=== PATIENT | male | born 1940 | race Two or more races ===

== ENCOUNTER 2017-12-25 08:13 | Emergency (ER) | payer MEDICARE, MEDICAID ==
[~2017-12-25] VITALS: Ht 172.7 cm; Wt 88.5 kg
[2017-12-25] MEDS ORDERED: NEBI5TAB8 PO (08:29)
[2017-12-25] MEDS ORDERED: ROSU5TAB PO (08:29)
[2017-12-25] MEDS ORDERED: METF10004 PO (08:29)
[2017-12-25] MEDS ORDERED: AMLO1TAB39 PO (08:29)
[2017-12-25] MEDS ORDERED: INSU200I4 SQ (08:29)
[2017-12-25] MEDS ORDERED: LINA5TAB PO (08:29)
[2017-12-25] MEDS ORDERED: IBUPROFEN 800 MG TABLET PO ONE (09:00)
[2017-12-25] MEDS ORDERED: IBUPROFEN 800 MG TABLET ONE (09:00)
--- NOTE | 2017-12-25 09:04 | NUR ---
Patient discharged to home in stable conditon. Written and verbal after care instructions given. Patient verbalizes understanding of instructions.
== END 2017-12-25 09:06 | disposition home or self-care (01) ==
LOC: ER 08:14
DX: M43.6 Torticollis (principal); I10 Essential (primary) hypertension; E11.9 Type 2 diabetes mellitus without complications; I25.10 Atherosclerotic heart disease of native coronary artery without angina pectoris; Z79.4 Long term (current) use of insulin; Z79.84 Long term (current) use of oral hypoglycemic drugs; Z79.899 Other long term (current) drug therapy
CPT/HCPCS: A4663

== ENCOUNTER 2018-03-01 19:27 | Inpatient (IN) | payer MEDICARE, MEDICAID ==
[~2018-03-01] VITALS: Ht 172.7 cm; Wt 86.6 kg
[~2018-03-01 19:27] MED LIST: AMLO1TAB39 PO; INSU200I4 SQ; LINA5TAB PO; METF10004 PO; NEBI5TAB8 PO; ROSU5TAB PO
--- NOTE | 2018-03-01 19:50 | NUR ---
Dr. Ladd at bedside for MSE.
[2018-03-01 20:12] LABS: BASOPHILS # (AUTO) 0.1 K/uL (0.0-8.0); BASOPHILS % (AUTO) 1.1 % (0.0-2.0); EOSINOPHILS # (AUTO) 0.2 K/uL (0.0-0.7); EOSINOPHILS % (AUTO) 4.2 % (0.0-7.0); HEMATOCRIT 32.2 % (36.7-47.1); HEMOGLOBIN 10.8 g/dL (12.5-16.3); LYMPHOCYTES # (AUTO) 1.8 K/uL (20.0-40.0); LYMPHOCYTES % (AUTO) 35.5 % (20.5-51.5); MEAN CORPUSCULAR HGB CONC 34 g/dL (32.5-36.3); MEAN CORPUSCULAR VOLUME 86.4 fL (73.0-96.2); MONOCYTES # (AUTO) 0.5 K/uL (2.0-10.0); NEUTROPHILS # (AUTO) 2.4 K/uL (1.8-8.9); NEUTROPHILS % (AUTO) 49.2 % (38.5-71.5); PLATELET COUNT (AUTO) 228 K/uL (152-348); RED BLOOD CELL COUNT(AUTO) 3.72 MIL/uL (4.06-5.63); WHITE BLOOD COUNT (AUTO) 4.9 K/uL (3.6-10.2)
[2018-03-01 20:15] LABS: *BILIRUBIN,URIN NEGATIVE (NEGATIVE); *BLOOD, URINE NEGATIVE (NEGATIVE); *CLARITY,URINE CLEAR (CLEAR); *COLOR,URINE YELLOW (YELLOW); *KETONES,URINE NEGATIVE (NEGATIVE); *PROTEIN,URINE NEGATIVE (NEGATIVE); *UROBILINOGEN,URINE 0.2 E.U./dl (NORMAL); LEUKOCYTE ESTERASE ,URINE NEGATIVE (NEGATIVE); NITRITE, URINE NEGATIVE (NEGATIVE); UGLUCOSE NEGATIVE (NEGATIVE)
[2018-03-01 20:22] LABS: BACTERIA,URINE NONE SEEN /HPF (NONE SEEN); RBC,URINE 0-3 /HPF (0-3); SQUAMOUS EPITHELIAL CELL,UR NONE SEEN /HPF (NONE SEEN); WBC,URINE 0-3 /HPF (0-3)
[2018-03-01 20:33] LABS: ALANINE AMINOTRANSFERASE 67 U/L (16-63); ALKALINE PHOSPHATASE 53 U/L (50-136); ASPARTATE AMINOTRANSFERASE 42 U/L (15-37); BILIRUBIN,DIRECT 0.1 mg/dL (0.0-0.2); BILIRUBIN,TOTAL 0.3 mg/dL (0.2-1.0); CARBON DIOXIDE 23 mmol/L (21-32); CHLORIDE 104 mmol/L (98-107); CREATININE 1.2 mg/dL (0.6-1.3); GLUCOSE 172 mg/dL (74-106); POTASSIUM 4.6 mmol/L (3.5-5.1); TOTAL PROTEIN, SERUM 7.5 g/dL (6.4-8.2); UREA NITROGEN, BLOOD 16 mg/dL (7-18)
[2018-03-01 20:44] LABS: LIPASE 2126 U/L (73-393)
--- NOTE | 2018-03-01 21:50 | NUR ---
Dr. Ladd on panel call with Dr. Fitzgerald.
[2018-03-01] MEDS ORDERED: ONDANSETRON 4 MG/2 ML VIAL IV ONE (22:00)
[2018-03-01] MEDS ORDERED: IV NORMAL SALINE 1000 ML BAG IV ONE (22:00)
[2018-03-01] MEDS ORDERED: ONDANSETRON 4 MG/2 ML VIAL ONE (22:11)
--- NOTE | 2018-03-01 22:13 | NUR ---
Pt out of ER for CT.
--- NOTE | 2018-03-01 22:29 | NUR ---
Pt back to ER from CT.
--- NOTE | 2018-03-01 23:23 | NUR ---
Report given to Brody MURO Tele
[2018-03-01] MEDS ORDERED: ENALAPRILAT DIHYDRATE INJ 2.5 MG in IV NORMAL SALINE 50 ML IV PRN (23:45)
[2018-03-01] MEDS ORDERED: INSULIN REGULAR, HUMAN 300 UNIT/3 ML VIAL SQ PRN (23:45)
[2018-03-01] MEDS ORDERED: DEXTROSE 50% 50 ML DISP.SYRIN IV PRN (23:45)
[2018-03-01] MEDS ORDERED: ONDANSETRON 4 MG/2 ML VIAL IV PRN (23:45)
[2018-03-01] MEDS ORDERED: MORPHINE SULFATE 2 MG/1 ML DISP.SYRIN IV PRN (23:45)
[2018-03-01] MEDS ORDERED: ACETAMINOPHEN 650 MG SUPP.RECT RC PRN (23:45)
[2018-03-02] VITALS: BP 136/60
--- NOTE | 2018-03-02 00:45 | NUR ---
Received patient from ER in no acute distress. Patient A/Ox4, Nigerian-speaking. Grandson at bedside. VSS. Sinus bradycardia on monitor. Room air. No complaints of pain or nausea at this time. Will continue plan of care.
[2018-03-02] MEDS: IV D5 1/2 NS 1000 ML 1,000 ML IV PRN ×3 (00:58→22:29)
[2018-03-02] MEDS: BLOOD SUGAR DIAGNOSTIC 1 EACH STRIP VI SCH ×5 (00:58→20:34)
--- NOTE | 2018-03-02 01:00 | NUR ---
Grandson at bedside, states that patient "might have an Advance Directive" and that patient's daughter Fiordaliza Ladd, , may be able to provide in AM. Will follow up.
--- NOTE | 2018-03-02 01:00 | NUR ---
Teaching provided regarding patient's diagnosis to both patient and grandson. Kiswahili literature education and Yi given. Both verbalize understanding
[2018-03-02 04:00] VITALS: BP 135/62
[2018-03-02 06:19] LABS: EOSINOPHILS # (AUTO) 0.2 K/uL (0.0-0.7); EOSINOPHILS % (AUTO) 4.4 % (0.0-7.0); HEMATOCRIT 30.9 % (36.7-47.1); HEMOGLOBIN 10.5 g/dL (12.5-16.3); LYMPHOCYTES # (AUTO) 1.5 K/uL (20.0-40.0); LYMPHOCYTES % (AUTO) 35.8 % (20.5-51.5); MEAN CORPUSCULAR HEMOGLOBIN 29.3 uug (23.8-33.4); MEAN CORPUSCULAR HGB CONC 34 g/dL (32.5-36.3); MEAN CORPUSCULAR VOLUME 86.4 fL (73.0-96.2); MONOCYTES # (AUTO) 0.4 K/uL (2.0-10.0); MONOCYTES % (AUTO) 9.1 % (0.0-11.0); NEUTROPHILS # (AUTO) 2.1 K/uL (1.8-8.9); NEUTROPHILS % (AUTO) 49.7 % (38.5-71.5); PLATELET COUNT (AUTO) 183 K/uL (152-348); RED BLOOD CELL COUNT(AUTO) 3.58 MIL/uL (4.06-5.63); WHITE BLOOD COUNT (AUTO) 4.3 K/uL (3.6-10.2)
[2018-03-02 06:32] LABS: IRON, SERUM 49 ug/dL (50-175)
[2018-03-02 06:34] LABS: ALANINE AMINOTRANSFERASE 56 U/L (16-63); ALKALINE PHOSPHATASE 42 U/L (50-136); ASPARTATE AMINOTRANSFERASE 36 U/L (15-37); BILIRUBIN,TOTAL 0.3 mg/dL (0.2-1.0); CARBON DIOXIDE 25 mmol/L (21-32); CHLORIDE 108 mmol/L (98-107); CHOLESTEROL 105 mg/dL (<200); CREATININE 1.2 mg/dL (0.6-1.3); GLUCOSE 124 mg/dL (74-106); HDL CHOLESTEROL 43 mg/dL (40-60); MAGNESIUM 1.7 mg/dL (1.8-2.4); PHOSPHOROUS 3.2 mg/dL (2.5-4.9); POTASSIUM 4.5 mmol/L (3.5-5.1); TOTAL PROTEIN, SERUM 6.5 g/dL (6.4-8.2); TRIGLYCERIDES 63 MG/DL (30-150); UREA NITROGEN, BLOOD 11 mg/dL (7-18)
[2018-03-02 06:44] LABS: LIPASE 450 U/L (73-393)
[2018-03-02 06:45] LABS: THYROID STIMULATING HORMONE 4.762 mIU/mL (0.358-3.740)
--- NOTE | 2018-03-02 08:00 | NUR ---
awake alert cooperate well no pain or n/v keep npo continue ivf ,resting well with call sapp in reach and remiond to call WHEN NEEDED
[2018-03-02] MEDS: PANTOPRAZOLE SODIUM 40 MG VIAL IV SCH (08:21)
[2018-03-02] MEDS ORDERED: MORPHINE SULFATE 4 MG/1 ML DISP.SYRIN IV PRN (08:30)
--- NOTE | 2018-03-02 10:00 | NUR ---
ENC TO OOB UP AMBULATE IN THE [address] AND UP IN CHAIR DOING WELL FAMILY DAUGHTER AT BEDSIDE NO N/V OR PAIN
[2018-03-02 11:45] VITALS: BP 122/56
--- NOTE | 2018-03-02 13:30 | NUR ---
BHARGAVI LOYOLAS SEEN PATIENT AND PT C/O OF HUNGRY AND H/A NEW ORDER IN CHART START CLEAR LIQ DIET TODAY LAURE MOD AMT NO N/V AND TYLENOL PO GIVEN
[2018-03-02] MEDS ORDERED: ACETAMINOPHEN 325 MG TABLET PO PRN (14:15)
[2018-03-02] MEDS: MAGNESIUM SULFATE/D5W 100 ML IV SCH ×2 (14:48→15:42)
[2018-03-02 15:37] VITALS: BP 119/57
--- NOTE | 2018-03-02 16:30 | NUR ---
ADV DIET TO FULL LIQ THIS PM ORDER NO N/V OR PAIN FAMILY AT BEDSIDE
[2018-03-02] MEDS: AMLODIPINE 5 MG TABLET PO SCH (16:38)
[2018-03-02] MEDS: LOSARTAN POTASSIUM 50 MG TABLET PO SCH (16:39)
[2018-03-02] MEDS: METFORMIN HCL 500 MG TABLET PO SCH (16:45)
[2018-03-02] MEDS ORDERED: Medication Not On Formulary EA (Metformin Hcl 1,000 MG) PO SCH (17:00)
--- NOTE | 2018-03-02 17:30 | NUR ---
STABLE HEMODYNAMIC STATUS PAIN UNDER CONTROL CONTINUE IVF SAFETY MEASURE PROVIDED AND CALL LIGHT IN REACH
[2018-03-02] MEDS ORDERED: DEXTROSE 50% 50 ML DISP.SYRIN IV PRN (17:45)
[2018-03-02] MEDS ORDERED: Medication Not On Formulary EA (Nebivolol Hcl (Bystolic) 5 MG) PO SCH (18:00)
[2018-03-02 20:00] VITALS: BP 137/57
--- NOTE | 2018-03-02 20:00 | NUR ---
Received patient awake in bed, alert and oriented. Patient is on Sinus bradycardia with HR of 50, no SOB, no chest pain noted. Kept clean and dry. Placed call light within reach and reminded to call when needed.
[2018-03-02] MEDS: INSULIN REGULAR, HUMAN 300 UNIT/3 ML VIAL SQ PRN (20:41)
[2018-03-02] MEDS ORDERED: ATORVASTATIN 10 MG TABLET PO SCH (21:00)
[2018-03-02] MEDS ORDERED: Medication Not On Formulary EA (Rosuvastatin Calcium (Crestor) 5 MG) PO SCH (21:00)
[2018-03-03] VITALS: BP 125/55
[2018-03-03 04:00] VITALS: BP 138/58
[2018-03-03] MEDS: BLOOD SUGAR DIAGNOSTIC 1 EACH STRIP VI SCH ×2 (06:01→11:33)
[2018-03-03 06:18] LABS: CARBON DIOXIDE 26 mmol/L (21-32); CHLORIDE 107 mmol/L (98-107); CREATININE 1.1 mg/dL (0.6-1.3); GLUCOSE 127 mg/dL (74-106); LIPASE 366 U/L (73-393); PHOSPHOROUS 3.1 mg/dL (2.5-4.9); POTASSIUM 4.5 mmol/L (3.5-5.1); UREA NITROGEN, BLOOD 8 mg/dL (7-18)
[2018-03-03 06:21] LABS: BASOPHILS # (AUTO) 0.1 K/uL (0.0-8.0); BASOPHILS % (AUTO) 1.3 % (0.0-2.0); EOSINOPHILS # (AUTO) 0.3 K/uL (0.0-0.7); EOSINOPHILS % (AUTO) 6.3 % (0.0-7.0); HEMATOCRIT 32.1 % (36.7-47.1); HEMOGLOBIN 10.8 g/dL (12.5-16.3); LYMPHOCYTES # (AUTO) 1.5 K/uL (20.0-40.0); LYMPHOCYTES % (AUTO) 29.1 % (20.5-51.5); MEAN CORPUSCULAR HEMOGLOBIN 29.1 uug (23.8-33.4); MEAN CORPUSCULAR HGB CONC 34 g/dL (32.5-36.3); MEAN CORPUSCULAR VOLUME 86.5 fL (73.0-96.2); MONOCYTES # (AUTO) 0.4 K/uL (2.0-10.0); MONOCYTES % (AUTO) 7.8 % (0.0-11.0); NEUTROPHILS # (AUTO) 2.8 K/uL (1.8-8.9); NEUTROPHILS % (AUTO) 55.5 % (38.5-71.5); PLATELET COUNT (AUTO) 211 K/uL (152-348); RED BLOOD CELL COUNT(AUTO) 3.71 MIL/uL (4.06-5.63); WHITE BLOOD COUNT (AUTO) 5.1 K/uL (3.6-10.2)
--- NOTE | 2018-03-03 07:00 | NUR ---
Patient remained fully rested. Patient is on Sinus Bradycardia with HR of 44. No complaint of SOB, no chest pain noted.
[2018-03-03] MEDS: AMLODIPINE 5 MG TABLET PO SCH (08:50)
[2018-03-03] MEDS: METFORMIN HCL 500 MG TABLET PO SCH (08:51)
[2018-03-03] MEDS: LOSARTAN POTASSIUM 50 MG TABLET PO SCH (08:51)
[2018-03-03] MEDS: PANTOPRAZOLE SODIUM 40 MG VIAL IV SCH (08:51)
[2018-03-03] MEDS ORDERED: LINAGLIPTIN 5 MG TABLET PO SCH (09:00)
[2018-03-03] MEDS ORDERED: Medication Not On Formulary EA (Amlodipine Bes/Olmesartan Med (Azor 5-40 Mg Tablet) 1 EA PO SCH (09:00)
--- NOTE | 2018-03-03 11:19 | NUR ---
Pt stable, pleasant, and cooperative. Pt tolerated breakfast mechanical soft diet. Self-ambulated down the swift, no pain, no SOB.
[2018-03-03] MEDS: INSULIN REGULAR, HUMAN 300 UNIT/3 ML VIAL SQ PRN (11:35)
[2018-03-03 11:42] VITALS: BP 107/59
--- NOTE | 2018-03-03 13:50 | NUR ---
PT D/C to home under the care of daughter. No pain, no SOB, no N/V. Pt will follow up with PCP. Self-ambulated out of the unit.
[2018-03-04] MEDS ORDERED: PANTOPRAZOLE SODIUM 40 MG TABLET.DR PO SCH (07:00)
== END 2018-03-03 13:45 | disposition home or self-care (01) | DRG 440 ==
LOC: ER 19:30 → TELE 03-02 00:20
PROVIDERS: ADMIT Internal Medicine; ATTEND Internal Medicine
DX: K85.90 Acute pancreatitis without necrosis or infection, unspecified (principal); I10 Essential (primary) hypertension; I25.10 Atherosclerotic heart disease of native coronary artery without angina pectoris; Z85.46 Personal history of malignant neoplasm of prostate; Z95.1 Presence of aortocoronary bypass graft; E11.65 Type 2 diabetes mellitus with hyperglycemia; Z79.84 Long term (current) use of oral hypoglycemic drugs
CPT/HCPCS: 36415; 70030-TC; 71045; 83550; 83690; 83735; 84100; 84443; 85025; 87086; 93005; A4663; C9113; J1815; J2405; J3475; J3490; J7030

== ENCOUNTER 2018-05-25 15:19 | Emergency (ER) | payer MEDICARE, MEDICAID ==
[~2018-05-25] VITALS: Ht 172.7 cm; Wt 81.6 kg
[2018-05-25 16:08] LABS: BASOPHILS % (AUTO) 0.7 % (0.0-2.0); EOSINOPHILS # (AUTO) 0.2 K/uL (0.0-0.7); EOSINOPHILS % (AUTO) 3.4 % (0.0-7.0); HEMATOCRIT 32.1 % (36.7-47.1); HEMOGLOBIN 10.7 g/dL (12.5-16.3); LYMPHOCYTES # (AUTO) 1.6 K/uL (20.0-40.0); LYMPHOCYTES % (AUTO) 32.2 % (20.5-51.5); MEAN CORPUSCULAR HEMOGLOBIN 29.1 uug (23.8-33.4); MEAN CORPUSCULAR HGB CONC 33 g/dL (32.5-36.3); MEAN CORPUSCULAR VOLUME 87.2 fL (73.0-96.2); MONOCYTES # (AUTO) 0.5 K/uL (2.0-10.0); MONOCYTES % (AUTO) 9.4 % (0.0-11.0); NEUTROPHILS # (AUTO) 2.7 K/uL (1.8-8.9); NEUTROPHILS % (AUTO) 54.3 % (38.5-71.5); PLATELET COUNT (AUTO) 206 K/uL (152-348); RED BLOOD CELL COUNT(AUTO) 3.68 MIL/uL (4.06-5.63); WHITE BLOOD COUNT (AUTO) 5.1 K/uL (3.6-10.2)
[2018-05-25 16:09] LABS: *BILIRUBIN,URIN NEGATIVE (NEGATIVE); *BLOOD, URINE NEGATIVE (NEGATIVE); *CLARITY,URINE CLEAR (CLEAR); *COLOR,URINE YELLOW (YELLOW); *KETONES,URINE NEGATIVE (NEGATIVE); *PROTEIN,URINE NEGATIVE (NEGATIVE); *UROBILINOGEN,URINE 0.2 E.U./dl (NORMAL); LEUKOCYTE ESTERASE ,URINE NEGATIVE (NEGATIVE); NITRITE, URINE NEGATIVE (NEGATIVE); PH,URINE 5.5 (5.0-8.0); UGLUCOSE NEGATIVE (NEGATIVE)
[2018-05-25 16:20] LABS: CARBON DIOXIDE 23 mmol/L (21-32); CHLORIDE 109 mmol/L (98-107); CREATININE 1.3 mg/dL (0.6-1.3); GLUCOSE 81 mg/dL (74-106); POTASSIUM 4.8 mmol/L (3.5-5.1); UREA NITROGEN, BLOOD 18 mg/dL (7-18)
[2018-05-25 16:24] LABS: SQUAMOUS EPITHELIAL CELL,UR FEW /HPF (NONE SEEN); WBC,URINE NONE SEEN /HPF (0-3)
[2018-05-25 16:28] LABS: ALANINE AMINOTRANSFERASE 62 U/L (16-63); ALKALINE PHOSPHATASE 47 U/L (50-136); ASPARTATE AMINOTRANSFERASE 56 U/L (15-37); BILIRUBIN,DIRECT 0.1 mg/dL (0.0-0.2); BILIRUBIN,TOTAL 0.3 mg/dL (0.2-1.0); LIPASE 1344 U/L (73-393); TOTAL PROTEIN, SERUM 7.5 g/dL (6.4-8.2)
--- NOTE | 2018-05-25 17:13 | NUR ---
Patient discharged to home in stable conditon. Written and verbal after care instructions given. Patient verbalizes understanding of instructions.pt walks in steady gait. pt with daughter who provided translation from armenian
[2018-05-25 17:14] VITALS: BP 131/69
== END 2018-05-25 17:16 | disposition home or self-care (01) ==
LOC: ER 15:19
DX: K85.90 Acute pancreatitis without necrosis or infection, unspecified (principal); E78.5 Hyperlipidemia, unspecified; E11.9 Type 2 diabetes mellitus without complications; I10 Essential (primary) hypertension; I25.10 Atherosclerotic heart disease of native coronary artery without angina pectoris; Z95.1 Presence of aortocoronary bypass graft
CPT/HCPCS: 36415; 70030-TC; 71045; 83690; 85025; 93005; A4663

== ENCOUNTER 2018-12-01 10:58 | Emergency (ER) | payer MEDICARE, MEDICAID ==
[~2018-12-01] VITALS: Ht 175.3 cm; Wt 81.6 kg
[~2018-12-01 10:58] MED LIST changes: +METF-442 PO; -METF10004 PO
--- NOTE | 2018-12-01 12:00 | NUR ---
DR MOCTEZUMA MADE PATIENT AWARE OF TEST RESULTS.
--- NOTE | 2018-12-01 12:04 | NUR ---
Patient discharged to home in stable conditon. Written and verbal after care instructions given. Patient verbalizes understanding of instructions.
[2018-12-01 12:09] VITALS: BP 143/73
== END 2018-12-01 12:11 | disposition home or self-care (01) ==
LOC: ER 10:58
DX: M54.5 Low back pain (principal); M54.6 Pain in thoracic spine; E78.5 Hyperlipidemia, unspecified; E11.9 Type 2 diabetes mellitus without complications; I10 Essential (primary) hypertension; I25.10 Atherosclerotic heart disease of native coronary artery without angina pectoris; Z95.1 Presence of aortocoronary bypass graft; Z79.4 Long term (current) use of insulin; Z79.899 Other long term (current) drug therapy; W19.XXXA Unspecified fall, initial encounter; Y93.89 Activity, other specified; Y92.89 Other specified places as the place of occurrence of the external cause; Y99.8 Other external cause status
CPT/HCPCS: 72072; 72100; A4663

== ENCOUNTER 2019-08-22 13:58 | Emergency (ER) | payer MEDICARE, MEDICAID ==
[~2019-08-22] VITALS: Ht 165.1 cm; Wt 83.9 kg
--- NOTE | 2019-08-22 14:25 | NUR ---
PATIENT STATES HE FELL LAST THURSDAY AND HIS HEAD HURTS EVER SINCE. HE IS A/A/OX3 IN NO DISTRESS. HE IS AMBULATORY WITH NO NEURO DEFICITS REPORTED.. SON AT BEDSIDE
[2019-08-22] MEDS ORDERED: IV NORMAL SALINE 1000 ML BAG IV ONE (14:30)
[2019-08-22] MEDS ORDERED: METOCLOPRAMIDE HCL 10 MG/2 ML VIAL IV ONE (14:30)
[2019-08-22] MEDS ORDERED: METOCLOPRAMIDE HCL 10 MG/2 ML VIAL ONE (14:36)
[2019-08-22 14:43] LABS: BASOPHILS # (AUTO) 0.1 K/uL (0.0-8.0); BASOPHILS % (AUTO) 1.1 % (0.0-2.0); EOSINOPHILS # (AUTO) 0.1 K/uL (0.0-0.7); EOSINOPHILS % (AUTO) 1.1 % (0.0-7.0); HEMATOCRIT 33.9 % (36.7-47.1); HEMOGLOBIN 10.9 g/dL (12.5-16.3); LYMPHOCYTES # (AUTO) 1.4 K/uL (20.0-40.0); LYMPHOCYTES % (AUTO) 26.4 % (20.5-51.5); MEAN CORPUSCULAR HEMOGLOBIN 26.6 uug (23.8-33.4); MEAN CORPUSCULAR HGB CONC 32 g/dL (32.5-36.3); MEAN CORPUSCULAR VOLUME 82.6 fL (73.0-96.2); MONOCYTES # (AUTO) 0.4 K/uL (2.0-10.0); MONOCYTES % (AUTO) 8.2 % (0.0-11.0); NEUTROPHILS # (AUTO) 3.4 K/uL (1.8-8.9); NEUTROPHILS % (AUTO) 63.2 % (38.5-71.5); PLATELET COUNT (AUTO) 227 K/uL (152-348); WHITE BLOOD COUNT (AUTO) 5.4 K/uL (3.6-10.2)
[2019-08-22 14:52] LABS: CREATININE 1.3 mg/dL (0.6-1.3); POTASSIUM 4.7 mmol/L (3.5-5.1)
[2019-08-22 15:09] LABS: BILIRUBIN,DIRECT 0.1 mg/dL (0.0-0.2); BILIRUBIN,TOTAL 0.4 mg/dL (0.2-1.0); TOTAL PROTEIN, SERUM 7.7 g/dL (6.4-8.2)
--- NOTE | 2019-08-22 15:22 | NUR ---
PATIENT IS AWAKE AND ALERT WITH NO NEW COMPLAINTS.
[2019-08-22] MEDS ORDERED: KETOROLAC TROMETHAMINE 15 MG INJ IVP ONE (15:45)
[2019-08-22] MEDS ORDERED: KETOROLAC TROMETHAMINE 15 MG INJ ONE (16:15)
--- NOTE | 2019-08-22 16:24 | NUR ---
[id number] AMBULATED TO BR WITH STEADY GAIT.
--- NOTE | 2019-08-22 17:28 | NUR ---
DC AND FOLLOW UP INSTRUCTIONS GIVEN AND EXPLAINED TO PATIENT AND SON WHO STATE THEY UNDERSTAND ALL INSTRUCTIONS.
--- NOTE | 2019-08-22 17:28 | NUR ---
IV removed. Catheter intact and site benign. Pressure and 4x4 gauze applied to site. No bleeding noted.
[2019-08-22 17:30] VITALS: BP 125/78
[2019-08-25] MEDS ORDERED: ASPI81TA31 PO (10:20)
[2019-09-08] MEDS ORDERED: ISOS60TA4 PO (10:08)
== END 2019-08-22 17:31 | disposition home or self-care (01) ==
LOC: ER 13:58
DX: R51 Headache (principal); M54.2 Cervicalgia; I25.10 Atherosclerotic heart disease of native coronary artery without angina pectoris; E78.5 Hyperlipidemia, unspecified; E11.9 Type 2 diabetes mellitus without complications; I10 Essential (primary) hypertension; Z95.1 Presence of aortocoronary bypass graft; Z79.4 Long term (current) use of insulin; Z79.84 Long term (current) use of oral hypoglycemic drugs; Z79.899 Other long term (current) drug therapy
CPT/HCPCS: 36415; 70450; 80048; 80076; 84484; 85025; 85730; 93005; 96374; 96375; 99284; J1885; J2765; 70030-TC; A4663; J7030

== ENCOUNTER 2019-08-24 09:22 | Inpatient (IN) | payer MEDICARE, MEDICAID ==
[~2019-08-24] VITALS: Ht 172.7 cm; Wt 86.2 kg
[2019-08-24] MEDS ORDERED: ASPI-966 PO (09:39)
[2019-08-24] MEDS ORDERED: TAMS-3 PO (09:39)
[2019-08-24] MEDS ORDERED: DUTA0.5C PO (09:39)
[2019-08-24] MEDS ORDERED: NITROGLYCERIN 0.4 MG/TAB BOTTLE SL ONE ×2 (09:44→09:45)
[2019-08-24] MEDS ORDERED: ASPIRIN 325 MG TABLET ONE (09:45)
[2019-08-24] MEDS ORDERED: ASPIRIN 325 MG TABLET PO ONE (09:45)
[2019-08-24 09:50] LABS: BASOPHILS # (AUTO) 0.1 K/uL (0.0-8.0); BASOPHILS % (AUTO) 1.1 % (0.0-2.0); EOSINOPHILS % (AUTO) 0.8 % (0.0-7.0); HEMATOCRIT 32.5 % (36.7-47.1); HEMOGLOBIN 11.2 g/dL (12.5-16.3); LYMPHOCYTES # (AUTO) 1.2 K/uL (20.0-40.0); LYMPHOCYTES % (AUTO) 22.7 % (20.5-51.5); MEAN CORPUSCULAR HEMOGLOBIN 28.5 uug (23.8-33.4); MEAN CORPUSCULAR HGB CONC 35 g/dL (32.5-36.3); MEAN CORPUSCULAR VOLUME 82.8 fL (73.0-96.2); MONOCYTES # (AUTO) 0.4 K/uL (2.0-10.0); MONOCYTES % (AUTO) 7.1 % (0.0-11.0); NEUTROPHILS # (AUTO) 3.5 K/uL (1.8-8.9); NEUTROPHILS % (AUTO) 68.3 % (38.5-71.5); PLATELET COUNT (AUTO) 219 K/uL (152-348); RED BLOOD CELL COUNT(AUTO) 3.92 MIL/uL (4.06-5.63); WHITE BLOOD COUNT (AUTO) 5.2 K/uL (3.6-10.2)
--- NOTE | 2019-08-24 09:51 | NUR ---
PT IS IN ROOM #1B. DR KUMARI EVALUATED THE PT.
[2019-08-24 09:54] LABS: CREATININE 1.2 mg/dL (0.6-1.3); POTASSIUM 4.6 mmol/L (3.5-5.1)
[2019-08-24 10:07] LABS: BILIRUBIN,DIRECT 0.1 mg/dL (0.0-0.2); BILIRUBIN,TOTAL 0.3 mg/dL (0.2-1.0); TOTAL PROTEIN, SERUM 7.4 g/dL (6.4-8.2)
[2019-08-24] MEDS ORDERED: ZOLPIDEM 5 MG TABLET PO PRN (11:00)
[2019-08-24] MEDS ORDERED: ONDANSETRON 4 MG/2 ML VIAL IV PRN (11:00)
[2019-08-24] MEDS ORDERED: MAGNESIUM HYDROXIDE 30 ML LIQUID UDC PO PRN (11:00)
[2019-08-24] MEDS ORDERED: HYDROCODONE/APAP 5-325MG TABLET PO PRN (11:00)
[2019-08-24] MEDS ORDERED: Z GUARD REMEDY PASTE 57 GM TUBE TOP PRN (11:00)
[2019-08-24] MEDS ORDERED: ACETAMINOPHEN 325 MG TABLET PO PRN (11:00)
--- NOTE | 2019-08-24 11:00 | NUR ---
REPORT GIVEN TO PULPER. PT WAS TRANSFERED TO ROOM #318.
--- NOTE | 2019-08-24 11:00 | NUR ---
Received patient from ER. Patient alert oriented x4. IV site at right AC 18 gauge. Patient ambulatory with steady gait. Patient denies pain and discomfort. Patient on 2L/min of oxygen via NC. No acute distress noted. Bed at lowest position. Call light within reach. Side rails up x 2. Will continue to monitor.
[2019-08-24] MEDS ORDERED: NITROGLYCERIN 0.4 MG/TAB BOTTLE SL PRN (11:15)
[2019-08-24] MEDS: METOPROLOL TARTRATE 25 MG TABLET PO SCH ×2 (12:07→20:37)
[2019-08-24 12:13] VITALS: BP 155/69
[2019-08-24] MEDS ORDERED: DEXTROSE 50% 50 ML DISP.SYRIN IV PRN (14:45)
[2019-08-24 16:28] VITALS: BP 161/60
[2019-08-24] MEDS: BLOOD SUGAR DIAGNOSTIC 1 EACH STRIP VI SCH ×2 (16:47→20:42)
[2019-08-24] MEDS: LOSARTAN POTASSIUM 25 MG TABLET PO SCH (17:25)
[2019-08-24] MEDS: METFORMIN HCL 500 MG TABLET PO SCH (17:25)
[2019-08-24] MEDS: AMLODIPINE 5 MG TABLET PO SCH (17:25)
[2019-08-24] MEDS: INSULIN REGULAR, HUMAN 300 UNIT/3 ML VIAL SQ PRN (17:26)
--- NOTE | 2019-08-24 18:36 | NUR ---
Patient rested throughout shift. Patient denies pain and discomfort. Patients BP elevated, LOADING MACHINE OPERATOR HELPER Sendy notified BP medications administered. Troponin levels within normal limits. Urine collected and sent to the lab. Safety measures provided. Will endorse to oncoming nurse.
[2019-08-24 18:38] LABS: *BILIRUBIN,URIN NEGATIVE (NEGATIVE); *BLOOD, URINE NEGATIVE (NEGATIVE); *CLARITY,URINE CLEAR (CLEAR); *COLOR,URINE YELLOW (YELLOW); *KETONES,URINE NEGATIVE (NEGATIVE); *UROBILINOGEN,URINE 0.2 E.U./dl (NORMAL); LEUKOCYTE ESTERASE ,URINE NEGATIVE (NEGATIVE); NITRITE, URINE NEGATIVE (NEGATIVE); UGLUCOSE NEGATIVE (NEGATIVE)
--- NOTE | 2019-08-24 19:30 | NUR ---
RECEIVED PT AWAKE, ALERT AND ORIENTEDX4. PT SHOWS NO SIGNS OF ACUTE DISTRESS. PT IV INTACT. SAFETY AND COMFORT PROVIDED. WILL CONTINUE TO MONITOR.
[2019-08-24 20:38] VITALS: BP 172/64
[2019-08-24] MEDS ORDERED: ATORVASTATIN 40 MG TABLET PO SCH (21:00)
[2019-08-24] MEDS ORDERED: ATORVASTATIN 20 MG TABLET PO SCH ×2 (21:00)
[2019-08-24] MEDS ORDERED: ATORVASTATIN 10 MG TABLET PO SCH (21:00)
--- NOTE | 2019-08-25 00:06 | NUR ---
NOTIFY DR. BOYLE REGARDING PT TROPONIN RESULT OF <0.017. DR KUHN JUST ORDERED NPO AND PT WILL HAVE CTA IN AM. PT IN NO ACUTE DISTRESS. SAFETY AND COMFORT PROVIDED. WILL CONTINUE TO MONITOR.
[2019-08-25 00:38] VITALS: BP 145/62
[2019-08-25 04:00] VITALS: BP 130/71
--- NOTE | 2019-08-25 06:17 | NUR ---
PT SLEPT INTERMITTENTLY. PT SHOWS NO SIGNS OF ACUTE DISTRESS.IV INTACT. PRESCRIBED MEDICATION GIVEN AND PT TOLERATED IT WELL. PT COOPERATIVE WITH CARE. SAFETY AND COMFORT PROVIDED. ALL NEEDS ARE MET. WILL ENDORSE TO INCOMING NURSE FOR CONTINUITY OF CARE.
[2019-08-25 06:31] LABS: BASOPHILS % (AUTO) 0.8 % (0.0-2.0); EOSINOPHILS # (AUTO) 0.2 K/uL (0.0-0.7); EOSINOPHILS % (AUTO) 3.9 % (0.0-7.0); HEMATOCRIT 33.4 % (36.7-47.1); HEMOGLOBIN 10.6 g/dL (12.5-16.3); LYMPHOCYTES # (AUTO) 1.7 K/uL (20.0-40.0); LYMPHOCYTES % (AUTO) 32.9 % (20.5-51.5); MEAN CORPUSCULAR HEMOGLOBIN 25.8 uug (23.8-33.4); MEAN CORPUSCULAR HGB CONC 32 g/dL (32.5-36.3); MEAN CORPUSCULAR VOLUME 81.3 fL (73.0-96.2); MONOCYTES # (AUTO) 0.4 K/uL (2.0-10.0); MONOCYTES % (AUTO) 8.6 % (0.0-11.0); NEUTROPHILS # (AUTO) 2.8 K/uL (1.8-8.9); NEUTROPHILS % (AUTO) 53.8 % (38.5-71.5); PLATELET COUNT (AUTO) 209 K/uL (152-348); RED BLOOD CELL COUNT(AUTO) 4.11 MIL/uL (4.06-5.63); WHITE BLOOD COUNT (AUTO) 5.2 K/uL (3.6-10.2)
[2019-08-25] MEDS: BLOOD SUGAR DIAGNOSTIC 1 EACH STRIP VI SCH ×3 (06:35→16:47)
[2019-08-25 06:50] LABS: CREATININE 1.1 mg/dL (0.6-1.3); MAGNESIUM 1.8 mg/dL (1.8-2.4); PHOSPHOROUS 3.3 mg/dL (2.5-4.9); POTASSIUM 4.7 mmol/L (3.5-5.1)
[2019-08-25] MEDS: METFORMIN HCL 500 MG TABLET PO SCH (08:44)
[2019-08-25] MEDS: AMLODIPINE 5 MG TABLET PO SCH (08:48)
[2019-08-25] MEDS: METOPROLOL TARTRATE 25 MG TABLET PO SCH (09:00)
[2019-08-25] MEDS ORDERED: ASPIRIN 81 MG TAB.CHEW PO SCH (09:00)
[2019-08-25] MEDS: LOSARTAN POTASSIUM 25 MG TABLET PO SCH (09:00)
[2019-08-25] MEDS ORDERED: TAMSULOSIN HCL 0.4 MG CAP.SR.24H PO SCH (09:00)
--- NOTE | 2019-08-25 10:15 | NUR ---
Pt received this morning. Pt assessed, denies pain. Primarily Belarusian speaking, able to make needs known. AAOx4. Daughter visiting at bedside. Plan for today including transfer via ambulance for CTA discussed. Morning medications tolerated, Pt refused 2/3 BP meds claiming he only takes 1 at home for BP 146/55, HR 49. Pt teaching provided. All comfort and safety needs attended to at this time. Right 18 AC hep lock intact. Call light within reach. Will continue to monitor.
[2019-08-25] MEDS ORDERED: ASPI81TA31 PO (10:20)
--- NOTE | 2019-08-25 10:51 | NUR ---
VS stable. Report given to teacher ballet. Pt picked up for transport by ambulance to [facility] for CTA. All safety needs addressed.
[2019-08-25 11:37] VITALS: BP 121/94
--- NOTE | 2019-08-25 12:47 | NUR ---
Pt returned safely, VSS. New order received regarding to start on 2gm Na diabetic diet. Will continue to monitor.
[2019-08-25 15:40] VITALS: BP 121/57
--- NOTE | 2019-08-25 16:24 | NUR ---
Pt and daughter at bedside spoke with Dr. Sanches over the phone discussing the results of the CTA procedure from this morning. All concerns addressed. Order for discharge received. Plan for discharge by private car with daughter arranged for after dinner. Belongings accounted for and list signed. Call light placed within reach. Will continue to monitor and follow up.
[2019-08-25] MEDS: INSULIN REGULAR, HUMAN 300 UNIT/3 ML VIAL SQ PRN (16:58)
--- NOTE | 2019-08-25 18:00 | NUR ---
Discharge paperwork reviewed with Pt and daughter at bedside. Documents signed, copies placed in chart, and originals provided to Pt. All discahrge concerns addressed. No skin integrity photos to be taken. No home medications to be returned. Belongings accounted for, IV removed intact, and tele monitor removed. VS stable. Pt safely transferred to wheelchair and escorted down to private car with daughter driving. ID band removed. Will remove Pt from system shortly.
[2019-09-08] MEDS ORDERED: ISOS60TA4 PO (10:08)
== END 2019-08-25 18:00 | disposition home or self-care (01) | DRG 303 ==
LOC: ER 09:22 → TELE3 10:30
PROVIDERS: ADMIT Nurse Practitioner Acute Care; ATTEND Nurse Practitioner Acute Care
PROC: B22 Imaging, Heart, Computerized Tomography (CT Scan) (ICD-10-PCS; principal; 2019-08-25)
DX: I25.119 Atherosclerotic heart disease of native coronary artery with unspecified angina pectoris (principal); J98.11 Atelectasis; I11.9 Hypertensive heart disease without heart failure; Z95.1 Presence of aortocoronary bypass graft; E78.5 Hyperlipidemia, unspecified; D63.8 Anemia in other chronic diseases classified elsewhere; E11.9 Type 2 diabetes mellitus without complications; I70.0 Atherosclerosis of aorta; Z79.4 Long term (current) use of insulin
CPT/HCPCS: 36415; 70030-TC; 70450; 71045; 83735; 84100; 85025; 85730; 93005; 93307; A4663; G0378; J1815; J7030

== ENCOUNTER 2019-09-06 21:41 | Inpatient (IN) | payer MEDICARE, MEDICAID ==
[~2019-09-06] VITALS: Ht 172.7 cm; Wt 87.7 kg
[~2019-09-06 21:41] MED LIST changes: +ASPI-966 PO; +ASPI81TA31 PO; +TAMS-3 PO
[2019-09-06] MEDS ORDERED: LABETALOL HCL 100 MG/20 ML VIAL IV ONE ×2 (22:30→23:45)
[2019-09-06 22:31] LABS: BASOPHILS # (AUTO) 0.1 K/uL (0.0-8.0); BASOPHILS % (AUTO) 1.3 % (0.0-2.0); EOSINOPHILS # (AUTO) 0.1 K/uL (0.0-0.7); EOSINOPHILS % (AUTO) 2.4 % (0.0-7.0); HEMATOCRIT 33.2 % (36.7-47.1); HEMOGLOBIN 10.6 g/dL (12.5-16.3); LYMPHOCYTES # (AUTO) 1.4 K/uL (20.0-40.0); LYMPHOCYTES % (AUTO) 27.7 % (20.5-51.5); MEAN CORPUSCULAR HGB CONC 32 g/dL (32.5-36.3); MEAN CORPUSCULAR VOLUME 81.2 fL (73.0-96.2); MONOCYTES # (AUTO) 0.5 K/uL (2.0-10.0); MONOCYTES % (AUTO) 8.9 % (0.0-11.0); NEUTROPHILS # (AUTO) 3.1 K/uL (1.8-8.9); NEUTROPHILS % (AUTO) 59.7 % (38.5-71.5); PLATELET COUNT (AUTO) 222 K/uL (152-348); RED BLOOD CELL COUNT(AUTO) 4.09 MIL/uL (4.06-5.63); WHITE BLOOD COUNT (AUTO) 5.1 K/uL (3.6-10.2)
[2019-09-06 22:34] LABS: CREATININE 1.3 mg/dL (0.6-1.3); POTASSIUM 4.7 mmol/L (3.5-5.1)
[2019-09-06] MEDS ORDERED: LABETALOL HCL 100 MG/20 ML VIAL ONE (22:38)
[2019-09-06 22:41] LABS: BILIRUBIN,DIRECT 0.1 mg/dL (0.0-0.2); BILIRUBIN,TOTAL 0.3 mg/dL (0.2-1.0); TOTAL PROTEIN, SERUM 7.1 g/dL (6.4-8.2)
[2019-09-06] MEDS ORDERED: ASPIRIN 325 MG TABLET ONE (23:24)
[2019-09-06 23:36] LABS: *BILIRUBIN,URIN NEGATIVE (NEGATIVE); *BLOOD, URINE NEGATIVE (NEGATIVE); *CLARITY,URINE CLEAR (CLEAR); *COLOR,URINE YELLOW (YELLOW); *KETONES,URINE NEGATIVE (NEGATIVE); *UROBILINOGEN,URINE 0.2 E.U./dl (NORMAL); LEUKOCYTE ESTERASE ,URINE NEGATIVE (NEGATIVE); NITRITE, URINE NEGATIVE (NEGATIVE); UGLUCOSE NEGATIVE (NEGATIVE)
[2019-09-06] MEDS ORDERED: ASPIRIN 325 MG TABLET PO ONE (23:45)
[2019-09-07] MEDS ORDERED: MAGNESIUM HYDROXIDE 30 ML LIQUID UDC PO PRN (01:00)
[2019-09-07] MEDS ORDERED: Z GUARD REMEDY PASTE 57 GM TUBE TOP PRN (01:00)
[2019-09-07] MEDS ORDERED: ASPIRIN/ACETAMINOPHEN/CAFFEINE TABLET PO PRN (01:00)
[2019-09-07] MEDS ORDERED: ACETAMINOPHEN 325 MG TABLET PO PRN (01:00)
[2019-09-07] MEDS ORDERED: HYDROCODONE/APAP 5-325MG TABLET PO PRN (01:00)
[2019-09-07] MEDS ORDERED: ONDANSETRON 4 MG/2 ML VIAL IV PRN (01:00)
[2019-09-07] MEDS ORDERED: INSULIN REGULAR, HUMAN 300 UNIT/3 ML VIAL SQ PRN ×2 (01:15→17:30)
[2019-09-07] MEDS ORDERED: INSULIN REGULAR, HUMAN 300 UNITS/3 ML VIAL SQ PRN ×2 (01:15→17:30)
[2019-09-07] MEDS ORDERED: hydrALAZINE HCL 20 MG/1 ML VIAL IV PRN (01:15)
[2019-09-07] MEDS ORDERED: DEXTROSE 50% 50 ML DISP.SYRIN IV PRN ×2 (01:15→17:30)
[2019-09-07 01:30] VITALS: BP 156/62
[2019-09-07] MEDS ORDERED: NITROGLYCERIN 0.4 MG/TAB BOTTLE SL ONE (01:30)
[2019-09-07] MEDS ORDERED: ENOXAPARIN SODIUM 40 MG/0.4 ML DISP.SYRIN SQ ONE (02:00)
[2019-09-07] MEDS ORDERED: NITROGLYCERIN 0.4 MG/TAB BOTTLE SL PRN (02:00)
[2019-09-07 04:00] VITALS: BP 152/64
[2019-09-07] MEDS: BLOOD SUGAR DIAGNOSTIC 1 EACH STRIP VI SCH ×5 (06:35→21:18)
[2019-09-07] MEDS: METFORMIN HCL 500 MG TABLET PO SCH ×2 (08:46→18:09)
[2019-09-07] MEDS: LOSARTAN POTASSIUM 50 MG TABLET PO SCH (08:46)
[2019-09-07] MEDS: ASPIRIN 81 MG TAB.CHEW PO SCH (08:46)
[2019-09-07] MEDS: METOPROLOL TARTRATE 25 MG TABLET PO SCH ×2 (08:47→17:00)
[2019-09-07] MEDS ORDERED: Medication Not On Formulary EA (Amlodipine Bes/Olmesartan Med (Azor 5-40 Mg Tablet) 1 EA PO SCH (09:00)
[2019-09-07] MEDS ORDERED: AMLODIPINE 5 MG TABLET PO SCH (09:00)
[2019-09-07] MEDS ORDERED: Medication Not On Formulary EA (Metformin Hcl 1,000 MG) PO SCH (09:00)
[2019-09-07 10:40] LABS: BASOPHILS # (AUTO) 0.1 K/uL (0.0-8.0); BASOPHILS % (AUTO) 1.2 % (0.0-2.0); EOSINOPHILS # (AUTO) 0.1 K/uL (0.0-0.7); EOSINOPHILS % (AUTO) 3.1 % (0.0-7.0); HEMATOCRIT 32.6 % (36.7-47.1); HEMOGLOBIN 10.4 g/dL (12.5-16.3); LYMPHOCYTES # (AUTO) 1.5 K/uL (20.0-40.0); LYMPHOCYTES % (AUTO) 30.9 % (20.5-51.5); MEAN CORPUSCULAR HEMOGLOBIN 26.4 uug (23.8-33.4); MEAN CORPUSCULAR HGB CONC 32 g/dL (32.5-36.3); MEAN CORPUSCULAR VOLUME 82.8 fL (73.0-96.2); MONOCYTES # (AUTO) 0.5 K/uL (2.0-10.0); MONOCYTES % (AUTO) 9.8 % (0.0-11.0); NEUTROPHILS # (AUTO) 2.7 K/uL (1.8-8.9); PLATELET COUNT (AUTO) 207 K/uL (152-348); RED BLOOD CELL COUNT(AUTO) 3.94 MIL/uL (4.06-5.63); WHITE BLOOD COUNT (AUTO) 4.8 K/uL (3.6-10.2)
[2019-09-07] MEDS ORDERED: hydrALAZINE HCL 50 MG TABLET PO PRN (10:45)
[2019-09-07 11:01] LABS: CREATININE 1.2 mg/dL (0.6-1.3); POTASSIUM 4.5 mmol/L (3.5-5.1)
[2019-09-07] MEDS: ISOSORBIDE MONONITRATE 60 MG TAB.SR.24H PO SCH (11:11)
[2019-09-07 11:27] VITALS: BP 153/68
[2019-09-07 15:09] VITALS: BP 106/51
[2019-09-07] MEDS ORDERED: Medication Not On Formulary EA (Nebivolol Hcl (Bystolic) 5 MG) PO SCH (18:00)
[2019-09-07 20:27] VITALS: BP 110/51
[2019-09-07] MEDS: AMLODIPINE 5 MG TABLET PO SCH (21:00)
[2019-09-07] MEDS ORDERED: ENOXAPARIN SODIUM 40 MG/0.4 ML DISP.SYRIN SQ SCH (21:00)
[2019-09-07] MEDS ORDERED: TAMSULOSIN HCL 0.4 MG CAP.SR.24H PO SCH (21:00)
[2019-09-07] MEDS ORDERED: Medication Not On Formulary EA (Rosuvastatin Calcium (Crestor) 5 MG) PO SCH (21:00)
[2019-09-07] MEDS ORDERED: ATORVASTATIN 10 MG TABLET PO SCH (21:00)
[2019-09-07 21:25] VITALS: BP 103/68
[2019-09-08 05:58] LABS: BASOPHILS # (AUTO) 0.1 K/uL (0.0-8.0); BASOPHILS % (AUTO) 0.8 % (0.0-2.0); EOSINOPHILS # (AUTO) 0.1 K/uL (0.0-0.7); EOSINOPHILS % (AUTO) 1.9 % (0.0-7.0); HEMATOCRIT 31.4 % (36.7-47.1); HEMOGLOBIN 10.1 g/dL (12.5-16.3); LYMPHOCYTES # (AUTO) 1.6 K/uL (20.0-40.0); LYMPHOCYTES % (AUTO) 25.3 % (20.5-51.5); MEAN CORPUSCULAR HEMOGLOBIN 26.1 uug (23.8-33.4); MEAN CORPUSCULAR HGB CONC 32 g/dL (32.5-36.3); MEAN CORPUSCULAR VOLUME 81.8 fL (73.0-96.2); MONOCYTES # (AUTO) 0.5 K/uL (2.0-10.0); MONOCYTES % (AUTO) 8.2 % (0.0-11.0); NEUTROPHILS # (AUTO) 4.2 K/uL (1.8-8.9); NEUTROPHILS % (AUTO) 63.8 % (38.5-71.5); PLATELET COUNT (AUTO) 196 K/uL (152-348); RED BLOOD CELL COUNT(AUTO) 3.84 MIL/uL (4.06-5.63); WHITE BLOOD COUNT (AUTO) 6.5 K/uL (3.6-10.2)
[2019-09-08] MEDS: BLOOD SUGAR DIAGNOSTIC 1 EACH STRIP VI SCH (06:08)
[2019-09-08 06:24] VITALS: BP 114/66
[2019-09-08 06:36] LABS: CREATININE 1.2 mg/dL (0.6-1.3); MAGNESIUM 1.9 mg/dL (1.8-2.4); PHOSPHOROUS 3.5 mg/dL (2.5-4.9); POTASSIUM 4.6 mmol/L (3.5-5.1)
[2019-09-08] MEDS: ASPIRIN 81 MG TAB.CHEW PO SCH (08:35)
[2019-09-08] MEDS: METFORMIN HCL 500 MG TABLET PO SCH (08:35)
[2019-09-08] MEDS: LOSARTAN POTASSIUM 50 MG TABLET PO SCH (08:36)
[2019-09-08] MEDS: METOPROLOL TARTRATE 25 MG TABLET PO SCH (08:37)
[2019-09-08] MEDS: ISOSORBIDE MONONITRATE 60 MG TAB.SR.24H PO SCH (08:37)
[2019-09-08] MEDS: AMLODIPINE 5 MG TABLET PO SCH (08:37)
[2019-09-08] MEDS ORDERED: LINAGLIPTIN 5 MG TABLET PO SCH (09:00)
[2019-09-08] MEDS ORDERED: ISOS60TA4 PO (10:08)
[2019-09-08 11:00] VITALS: BP 101/50
== END 2019-09-08 11:55 | disposition home or self-care (01) | DRG 880 ==
LOC: ER 21:44 → TELE3 09-07 00:20 → MEDSURG3 09-07 12:00
PROVIDERS: ADMIT Hospitalist; ATTEND Nurse Practitioner Acute Care
DX: F41.9 Anxiety disorder, unspecified (principal); I25.10 Atherosclerotic heart disease of native coronary artery without angina pectoris; E11.9 Type 2 diabetes mellitus without complications; E78.5 Hyperlipidemia, unspecified; C61 Malignant neoplasm of prostate; I11.9 Hypertensive heart disease without heart failure; D63.8 Anemia in other chronic diseases classified elsewhere; Z79.82 Long term (current) use of aspirin; R00.1 Bradycardia, unspecified; Z79.899 Other long term (current) drug therapy; Z95.1 Presence of aortocoronary bypass graft; Z91.14 Patient's other noncompliance with medication regimen; Z95.810 Presence of automatic (implantable) cardiac defibrillator; I70.0 Atherosclerosis of aorta; E78.00 Pure hypercholesterolemia, unspecified
CPT/HCPCS: 36415; 70030-TC; 71045; 83735; 84100; 85025; 85730; 93005; A4663; G0378; J1650; J1815; J3490

== ENCOUNTER 2020-11-22 09:00 | Emergency (ER) | payer MEDICARE, OTHER ==
[~2020-11-22] VITALS: Ht 167.6 cm; Wt 90.7 kg
[~2020-11-22 09:00] MED LIST changes: +ISOS60TA72 PO; -NEBI5TAB8 PO
--- NOTE | 2020-11-22 09:20 | NUR ---
Pt unable to provide current home medication information.
[2020-11-22 09:30] LABS: BASOPHILS # (AUTO) 0.1 K/uL (0.0-8.0); BASOPHILS % (AUTO) 1.2 % (0.0-2.0); EOSINOPHILS # (AUTO) 0.1 K/uL (0.0-0.7); EOSINOPHILS % (AUTO) 1.9 % (0.0-7.0); HEMATOCRIT 40.1 % (36.7-47.1); HEMOGLOBIN 13.6 g/dL (12.5-16.3); LYMPHOCYTES # (AUTO) 1.4 K/uL (20.0-40.0); LYMPHOCYTES % (AUTO) 24.5 % (20.5-51.5); MEAN CORPUSCULAR HEMOGLOBIN 31.3 uug (23.8-33.4); MEAN CORPUSCULAR HGB CONC 34 g/dL (32.5-36.3); MEAN CORPUSCULAR VOLUME 92.7 fL (73.0-96.2); MONOCYTES # (AUTO) 0.4 K/uL (2.0-10.0); MONOCYTES % (AUTO) 7.4 % (0.0-11.0); NEUTROPHILS # (AUTO) 3.8 K/uL (1.8-8.9); PLATELET COUNT (AUTO) 234 K/uL (152-348); RED BLOOD CELL COUNT(AUTO) 4.33 MIL/uL (4.06-5.63); WHITE BLOOD COUNT (AUTO) 5.8 K/uL (3.6-10.2)
[2020-11-22 09:44] LABS: CARBON DIOXIDE 24 mmol/L (21-32); CHLORIDE 102 mmol/L (98-107); CREATININE 1.4 mg/dL (0.6-1.3); GLUCOSE 250 mg/dL (74-106); POTASSIUM 4.5 mmol/L (3.5-5.1); UREA NITROGEN, BLOOD 15 mg/dL (7-18)
[2020-11-22 10:15] VITALS: BP 131/78
[2020-11-22] MEDS ORDERED: ASPIRIN 81 MG TAB.CHEW PO ONE (10:15)
[2020-11-22] MEDS ORDERED: ASPIRIN 81 MG TAB.CHEW ONE (10:17)
--- NOTE | 2020-11-22 11:00 | NUR ---
Dr. conner called and talked to vincent wong.
--- NOTE | 2020-11-22 11:10 | NUR ---
PT WILL BE ER OBSERVATION FOR SECOND TROPONIN
--- NOTE | 2020-11-22 11:37 | NUR ---
NOTE TO PHARMACY, WRONG ORDER OF DOXYCYLINE IN THE PT.
[2020-11-22] MEDS ORDERED: DOXYCYCLINE HYCLATE 100 MG TABLET PO ONE (11:45)
--- NOTE | 2020-11-22 14:10 | NUR ---
Patient discharged to home in stable condition. Written and verbal after care instructions given. Patient verbalizes understanding of instructions. Stressed follow up or return to ER for worsening s/s. PT DENEIS ANY SOB AT THIS TIME. PT REAMINED CALM THE WHOLE ER STAY, NO SIGN OF BREATHING DISTRESS.
== END 2020-11-22 14:20 | disposition home or self-care (01) ==
LOC: ER 09:00
DX: R06.00 Dyspnea, unspecified (principal); R00.1 Bradycardia, unspecified; I10 Essential (primary) hypertension; E78.5 Hyperlipidemia, unspecified; I25.10 Atherosclerotic heart disease of native coronary artery without angina pectoris; Z95.1 Presence of aortocoronary bypass graft; Z85.46 Personal history of malignant neoplasm of prostate; Z95.0 Presence of cardiac pacemaker; E11.9 Type 2 diabetes mellitus without complications; Z79.4 Long term (current) use of insulin; Z79.899 Other long term (current) drug therapy
CPT/HCPCS: 36415; 70030-TC; 71045; 85025; 86850; 86900; 86901; 93005; A4663